=== PATIENT | male | born 1995 | race Two or more races ===

== ENCOUNTER 2022-10-18 18:02 | Emergency (ER) | payer OTHER ==
[2022-10-18 18:13] VITALS: BP 144/83
[2022-10-18] MEDS ORDERED: valACYclovir 500 MG TABLET PO STA (18:26)
[2022-10-18] MEDS ORDERED: predniSONE 20 MG TABLET PO STA (18:26)
--- NOTE | 2022-10-18 18:30 | ED Physician Documentation ---
History of Present Illness - Stated complaint Stated Complaint: FACE NUMB ON LT - Chief complaint Chief Complaint: Heent - Additonal information Additional information: 26-year-old male with no pertinent past medical history presents emergency department for evaluation of left-sided facial numbness, left-sided facial droop and headache. Reports he woke up this a.m. with a headache. He is unable to fully close his left eye or raise his forehead. Denies excessive eye watering or loss of taste. He resides on [facility]. [employer] [place]. [place] [facility] requesting CT head Review of Systems Constitutional: denies: Fever Eyes: denies: Loss of vision Ears: denies: Ear pain Nose: reports: Reviewed and negative Cardiac: reports: Reviewed and negative Respiratory: reports: Reviewed and negative GI: reports: Reviewed and negative : reports: Reviewed and negative Skin: reports: Reviewed and negative Musculoskeletal: reports: Reviewed and negative PD PAST MEDICAL HISTORY - Past Surgical History Past Surgical History: No - Present Medications Home Medications: Ambulatory Orders Medication Instructions Recorded Confirmed Hypromellose [Tears Lubricant Eye 15 ml LEFTEYE TID #15 ml 10/18/22 Drop] Valacyclovir HCl [Valtrex] 1,000 mg PO TID #21 tablet 10/18/22 predniSONE [Deltasone] 60 mg PO DAILY 7 Days #21 tablet 10/18/22 - Allergies Allergies/Adverse Reactions: Allergies Allergy/AdvReac Type Severity Reaction Status Date / Time cephalexin AdvReac Rash Verified 10/18/22 18:13 - Social History Does the pt smoke?: No Smoking Status: Never smoker Does the pt drink ETOH?: Yes Does the pt have substance abuse?: No - Immunizations Immunizations are current?: Yes - POLST Patient has POLST: No PD ED PE NORMAL - General General: Alert and oriented X 3, No acute distress, Well developed/nourished - HEENT HEENT: Atraumatic, Ears normal - Neck Neck: Supple, no meningeal sign - Cardiac Cardiac: RRR, No murmur - Respiratory Respiratory: No respiratory distress, Clear bilaterally - Abdomen Abdomen: Normal bowel sounds, Soft - Derm Derm: Normal color, Warm and dry, No rash - Extremities Extremities: No deformity, No tenderness to palpate, Normal ROM s pain - Neuro Neuro: Alert and oriented X 3, Other (Reduced tone left side of the face. Loss of left upper forehead muscle tone. Unable to fully close the left eye.). No: title clerk 2-12 intact Eye Opening: Spontaneous Motor: Obeys Commands Verbal: Oriented GCS Score: 15 Results - Vitals Vitals: Vital Signs - 24 hr 10/18/22 10/18/22 18:09 18:13 Temperature 36.1 C L Heart Rate 67 67 Respiratory 17 17 Rate Blood Pressure 144/83 H 144/83 H O2 Saturation 99 99 Oxygen O2 Source Room air - Rads (name of study) CT head Relevant Findings:: Final report received (No evidence of acute intracranial abnormality) Departure - Departure Clinical Impression: Facial paralysis/[place] palsy Condition: Stable Record reviewed to determine appropriate education?: Yes Instructions: ED [place] Palsy Prescriptions: predniSONE [Deltasone] 60 mg PO DAILY 7 Days #21 tablet Hypromellose [Tears Lubricant Eye Drop] 15 ml LEFTEYE TID #15 ml Valacyclovir HCl [Valtrex] 1,000 mg PO TID #21 tablet Comments: Kin came to the emergency department today because this morning he had a headache of developed some numbness and paralysis. 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 This is typically due to a virus that will cause inflammation of a facial nerve on the left side of your face. Most patients will began to have improvement in symptoms when started on medication within 72 hours. Most people will have resolution of the symptoms within a few weeks. The CT of your head today was normal. In order to manage the symptoms and treat what is likely a virus we [place]. This is an antiviral medicine you will take 3 times a day for the next week. And medication called prednisone which is a steroid [place] This will help reduce the inflammation around the nerve and help you regain the function. Because you cannot properly close your left eye you are at risk to develop scratches or abrasions on your eye. You do need to wear a patch especially when asleep at night. Please place lubricating eyedrops in your eye 3-5 times a day or at any point you feel that your eye is dry. Please discuss this ED visit with [facility] tomorrow. Return immediately to the ER if you find that you are having worsening symptoms.
--- NOTE | 2022-10-18 18:50 | CT Report ---
PROCEDURE: HEAD WO INDICATIONS: left facial droop and headache TECHNIQUE: Noncontrast 4.5 mm thick angled axial sections acquired from the foramen magnum to the vertex. For r adiation dose reduction, the following was used: automated exposure control, adjustment of mA and/or kV according to patient size. COMPARISON: None. FINDINGS: Image quality: Excellent. CSF spaces: Basal cisterns are patent. No extra-axial fluid collections. Ventricles are normal in size and shape. Incidental note is made of cisterna magna. Brain: No midline shift. No intracranial masses or hemorrhage. Lopez-white matter interface is norm al. Skull and face: Calvarium and visualized facial bones are intact, without suspicious lesions. Sinuses: Visualized sinuses and mastoids are clear. IMPRESSION: No evidence of an acute intracranial abnormality. Reviewed by: Clinton Prince DO on 10/18/2022 5:49 PM BRENDA Approved by: Clinton Prince DO on 10/18/2022 5:49 PM BRENDA Station ID: [id number]
== END 2022-10-18 19:05 | disposition home or self-care (01) ==
LOC: ED 18:02
DX: G51.0 Bell's palsy (principal)
CPT/HCPCS: 70450; 99283; 99284; A9270; J7512